=== PATIENT | male | born 1960 | race Caucasian/White ===

== ENCOUNTER 2017-09-20 05:59 | Day surgery (SDC) | payer BC ==
[2017-09-19 15:53] LABS: BASOPHILS % (AUTO) 0.5 % (0-1); EOSINOPHILS # (AUTO) 0.1 X10'3 (0-0.9); EOSINOPHILS % (AUTO) 0.7 % (0-6); HEMOGLOBIN 14.4 g/dl (14.0-17.9); LYMPHOCYTES # (AUTO) 2.4 X10'3 (1.1-4.8); LYMPHOCYTES % (AUTO) 27.2 % (21-51); MEAN CORPUSCULAR HEMOGLOBIN 30.5 PG (27.0-31.0); MEAN CORPUSCULAR HGB CONC 33.6 % (33.0-36.5); MEAN CORPUSCULAR VOLUME 90.9 FL (78-98); MEAN PLATELET VOLUME 10.3 FL (7.4-10.4); MONOCYTES # (AUTO) 0.8 X10'3 (0-0.9); MONOCYTES % (AUTO) 9.2 % (2-12); NEUTROPHILS # (AUTO) 5.5 X10'3 (1.8-7.7); NEUTROPHILS % (AUTO) 62.4 % (42-75); PLATELET COUNT 203 X10'3 (140-440); RED BLOOD COUNT 4.73 X10'6 (4.70-6.10); RED CELL DISTRIBUTION WIDTH 14.2 % (11.5-14.5); WHITE BLOOD COUNT 8.9 X10'3 (4.5-11.0)
[2017-09-19 16:00] LABS: INR 0.9 INR; PROTHROMBIN TIME 9.7 SECONDS (9.0-12.0)
[2017-09-19 16:03] LABS: ALBUMIN 3.9 G/DL (3.4-5.0); ANION GAP 11 (8-16); BLOOD UREA NITROGEN 22 MG/DL (7-18); BUN/CREATININE RATIO 17.5 (5.4-32.0); CHLORIDE 106 MMOL/L (99-107); CREATININE 1.26 MG/DL (0.60-1.10); GLUCOSE 93 MG/DL (70-104); POTASSIUM 3.9 MMOL/L (3.5-5.1); SODIUM 141 MMOL/L (135-145); TOTAL CARBON DIOXIDE 24.2 MMOL/L (24-32); eGFR 59 ML/MIN
[2017-09-20] VITALS (24 sets, daily range): BP systolic 91–138; BP diastolic 58–86
[~2017-09-20] VITALS: Ht 172.7 cm; Wt 77.6 kg
[2017-09-20] MEDS ORDERED: LISI40TA4 PO (06:15)
[2017-09-20] MEDS ORDERED: METO50TA7 PO (06:15)
[2017-09-20] MEDS ORDERED: P-EP-21 PO (06:15)
[2017-09-20] MEDS ORDERED: IBUP-1984 PO (06:15)
[2017-09-20] MEDS ORDERED: AMLO5TAB4 PO (06:15)
[2017-09-20] MEDS ORDERED: normal saline 1000ml 1,000 ML IV SCH (06:45)
[2017-09-20] MEDS ORDERED: morphine 10mg/ml inj. IV ONE (06:45)
[2017-09-20] MEDS ORDERED: LORazepam 0.5 MG tablet PO ONE (06:45)
[2017-09-20] MEDS ORDERED: MIDAZolam 5mg/ml 2ml vial IV ONE (06:45)
[2017-09-20] MEDS ORDERED: diphenhydrAMINE 25mg capsule PO ONE ×2 (06:45→07:20)
== END 2017-09-20 12:30 | disposition home or self-care (01) ==
LOC: CARD DIAG 05:59 → SSTAY O 12:30
PROVIDERS: ATTEND Internal Medicine Cardiovascular Disease
DX: I08.0 Rheumatic disorders of both mitral and aortic valves (principal); I10 Essential (primary) hypertension; Z95.2 Presence of prosthetic heart valve; Z79.1 Long term (current) use of non-steroidal anti-inflammatories (NSAID); Z88.2 Allergy status to sulfonamides; Z90.89 Acquired absence of other organs; Z98.890 Other specified postprocedural states; Z79.899 Other long term (current) drug therapy
CPT/HCPCS: 36415; 80048; 85025; 85610; 93005; 93312; J2250; J2270; J7030; Q0163